=== PATIENT | male | born 1990 | race Caucasian/White ===

== ENCOUNTER 2020-12-26 12:55 | Emergency (ER) | payer OTHER, SELFPAY ==
[2020-12-26 13:01] VITALS: BP 182/86; PULSE 90; RESP 20; TEMP 36.8; O2SAT 100
--- NOTE | 2020-12-26 13:03 | ED.EAR ---
HPI - Ear Problem General Chief complaint: Ear Stated complaint: ear pain Time Seen by Provider: 12/26/20 13:03 Source: patient and RN notes reviewed History of Present Illness HPI Narrative: Patient is a 30-year-old male who presents the urgent care with complaints of left ear pain. Patient states that it started yesterday and he has been taking either aspirin or ibuprofen for the pain. Patient states that it hurts to touch the outside of the ear. Denies of any other upper respiratory symptoms. Denies of using any [id number]-nrx-gulrwdr drops. States that he has been using Q-tips to the left ear. Denies of any fevers. No other acute complaints. No acute distress noted. Patient aware of the plan of care. Some parts of this dictation were generated by voice recognition software and may contain typographical and/or grammatical inaccuracies. Related Data Home Medications Medication Instructions Recorded Confirmed lisinopril-hydrochlorothiazide 1 tablet PO DAILY 12/26/20 12/26/20 rosuvastatin 5 mg PO DAILY 12/26/20 12/26/20 Allergies Allergy/AdvReac Type Severity Reaction Status Date / Time No Known Allergies Allergy Verified 12/26/20 13:14 Review of Systems Review of Systems: CONSTITUTIONAL: Denies fever, chills, or sweats. EYES: Denies visual changes, redness, or discharge. ENT: Reports of left otalgia CARDIOVASCULAR: Denies chest pain, palpitations, or edema. RESPIRATORY: Denies cough or dyspnea. GASTROINTESTINAL: Denies abdominal pain, nausea, vomiting, or diarrhea. GENITOURINARY: Denies dysuria or hematuria. SKIN: Denies rash or itching. MUSCULOSKELETAL: Denies back pain, joint pain, or myalgia. NEUROLOGIC: Denies headache, numbness, or weakness. All other systems reviewed are negative, except as documented in HPI. PMFSH Comments At the time of my signature, I reviewed and agree with the nursing past medical, surgical, social, and family history. There is no relevant family history pertinent to the patient complaint. Exam Narrative: GENERAL: This is a well-nourished, well-developed patient, in no apparent distress. HEAD: normocephalic, atraumatic. EYES: PERRL. Sclera clear/white. Vision is grossly intact. EARS: External ears normal, mild erythema and slight edema noted to the left auditory canal without drainage, right auditory canal clear and without drainage, bilateral TMs normal without perforation. Hearing grossly intact. NOSE: External nose normal with no obvious nasal discharge, nares without redness, no rhinorrhea. THROAT: Mucous membranes moist, posterior pharynx clear. Mild postnasal drainage NECK: Neck supple CARDIOVASCULAR: Regular rate and rhythm without murmurs, gallops, or rubs. RESPIRATORY: Clear to auscultation. Breath sounds equal bilaterally. No wheezes, rales, or rhonchi. SKIN: warm, intact with no suspicious lesions or rash, good texture and turgor. NEURO: awake, alert, and oriented to person, place and time. There were no obvious focal neurologic abnormalities. EXTREMITIES: No clubbing, cyanosis, or edema. Course Vital Signs Vital signs: Vital Signs Temperature 98.2 F 12/26/20 13:01 Pulse Rate 90 12/26/20 13:01 Respiratory Rate 20 12/26/20 13:01 Blood Pressure 182/86 H 12/26/20 13:01 Pulse Oximetry 100 12/26/20 13:01 Temperature 98.2 F 12/26/20 13:01 Pulse Rate 90 12/26/20 13:01 Respiratory Rate 20 12/26/20 13:01 Blood Pressure 140/76 12/26/20 13:28 Pulse Oximetry 100 12/26/20 13:01 Reviewed-patient is informed that they may have pre-hypertension or hypertension based on a blood pressure reading in the department. I recommend the patient call the primary care provider listed on their discharge instructions or a physician of their choice this week to arrange follow-up for further evaluation of possible pre-hypertension or hypertension. Medical Decision Making MDM Narrative Medical decision making narrative: Advised the patient to use Tylenol/ibuprof
[2020-12-26 13:28] VITALS: BP 140/76
== END 2020-12-26 13:28 | disposition home or self-care (01) ==
PROVIDERS: Emergency Provider Nurse Practitioner Family
DX: H60.92 Unspecified otitis externa, left ear (principal)
CPT/HCPCS: 99213; G0463

== ENCOUNTER 2021-09-17 07:54 | Outpatient (CLI) | payer OTHER, SELFPAY ==
[2021-09-17 09:48] LABS: Liquefaction Semen Complete in 30 min. (<30 minutes); Semen Color Opaque (Grey-opaque); Semen Viscosity Increased (Not Increa.); Volume Semen 3 mL (1.5-5.0); pH Semen 8.5 (7.2-8.0)
[2021-09-17 09:49] LABS: Semen Immotility 5 %; Semen Non-Progressive Motility 10 %; Semen Progressive Motility 85 % (>32); Semen Total Motility 95 (>40% (PM+NP))
[2021-09-17 10:00] LABS: Semen Morphology Result to Follow; Sperm Count 58.8 Mil/mL (60-150 million/mL)
[2021-09-19 21:08] LABS: FSH 4.3 mIU/mL (1.6-8.0); LH 2.6 mIU/mL (1.5-9.3)
[2021-09-21 14:27] LABS: Testosterone Free 80.7 pg/mL (35.0-155.0); Testosterone Total 469 ng/dL (250-1100)
[2021-09-22 22:25] LABS: Fructose, Semen 248 mg/dL (150-600)
== END 2021-09-17 07:55 | disposition home or self-care (01) ==
LOC: CHSLAB 07:55
PROVIDERS: PCP Internal Medicine; Visit Provider Internal Medicine
DX: N46.9 Male infertility, unspecified (principal)
CPT/HCPCS: 36415; 82757; 83001; 83002; 84402; 84403; 88160; 89320